=== PATIENT | male | born 1980 | race African-American/Black ===

== ENCOUNTER 2019-06-03 04:27 | Emergency (ER) | payer MEDICAID ==
[~2019-06-03] VITALS: Ht 175.3 cm; Wt 93.2 kg
[2019-06-03 04:33] VITALS: Ht 175.3 cm; Wt 93.2 kg
[2019-06-03 05:28] LABS: APPEARANCE CLEAR (CLEAR); BILIRUBIN NEGATIVE (NEGATIVE); COLOR YELLOW (YELLOW); GLUCOSE NEGATIVE (NEGATIVE); KETONE NEGATIVE (NEGATIVE); NITRITE NEGATIVE (NEGATIVE); PROTEIN TRACE mg/dL (NEGATIVE); UROBILINOGEN NORMAL (NORMAL)
[2019-06-03 05:30] LABS: BACTERIA FEW /hpf (NEGATIVE); EPITHELIAL CELLS 0-5 /hpf (0-5); MUCUS <1+ /lpf (NONE SEEN); RED CELLS - URINE 0-5 /hpf (0-5)
[2019-06-03 06:15] VITALS: BP 133/96
[2019-06-06 20:06] LABS: CHLAMYDIA TRACHOMATIS, NAA Negative (Negative)
== END 2019-06-03 06:16 | disposition home or self-care (01) ==
LOC: D.ER 04:27
PROVIDERS: Family Medicine
DX: A64 Unspecified sexually transmitted disease (principal)

== ENCOUNTER 2019-08-10 01:38 | Emergency (ER) | payer MEDICAID ==
[~2019-08-10] VITALS: Ht 175.3 cm; Wt 101.4 kg
[2019-08-10 01:43] VITALS: BP 148/99; Ht 175.3 cm; Wt 101.4 kg
[2019-08-10] MEDS ORDERED: CLEOCIN HCL300 MG PO (02:08)
[2019-08-10] MEDS ORDERED: KEFLEX500 MG PO (02:08)
== END 2019-08-10 02:39 | disposition home or self-care (01) ==
LOC: D.ER 01:38
DX: L03.011 Cellulitis of right finger (principal)

== ENCOUNTER 2020-02-24 03:16 | Emergency (ER) | payer MEDICAID ==
[~2020-02-24] VITALS: Ht 175.3 cm; Wt 104.5 kg
[~2020-02-24 03:16] MED LIST: CLEOCIN HCL300 MG PO; KEFLEX500 MG PO
[2020-02-24 03:20] VITALS: Ht 175.3 cm; Wt 104.5 kg
[2020-02-24] MEDS ORDERED: VIBRAMYCIN 100100 MG PO (03:39)
[2020-02-24 03:48] LABS: BILIRUBIN NEGATIVE (NEGATIVE); GLUCOSE NEGATIVE (NEGATIVE); KETONE NEGATIVE (NEGATIVE); NITRITE NEGATIVE (NEGATIVE); UROBILINOGEN NORMAL (NORMAL)
[2020-02-24 03:50] LABS: BACTERIA FEW /hpf (NEGATIVE); EPITHELIAL CELLS 0-5 /hpf (0-5); RED CELLS - URINE 0-5 /hpf (0-5)
[2020-02-24] MEDS ORDERED: FLAGYL500 MG PO (04:03)
[2020-02-24 04:30] VITALS: BP 128/85
== END 2020-02-24 04:30 | disposition home or self-care (01) ==
LOC: D.ER 03:16
PROVIDERS: Emergency Medicine
DX: A64 Unspecified sexually transmitted disease (principal); N48.89 Other specified disorders of penis; N30.00 Acute cystitis without hematuria; I10 Essential (primary) hypertension; Z72.0 Tobacco use; N39.0 Urinary tract infection, site not specified